=== PATIENT | male | born 1935 | race American Indian/Alaskan Native ===

== ENCOUNTER 2016-09-14 09:54 | Emergency (ER) | payer MEDICARE ==
[2016-09-14] MEDS ORDERED: MOTRIN PO ONE (14:06)
[2016-09-14] MEDS ORDERED: THERMAZENE 50 GRAM TP ONE (14:06)
[2016-09-14] MEDS ORDERED: BOOSTRIX IM ONE (14:06)
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
[2016-09-14 18:02] VITALS: BP 162/84
== END 2016-09-14 17:30 | disposition home or self-care (01) ==
LOC: ED 09:54
DX: T22.10XA Burn of first degree of shoulder and upper limb, except wrist and hand, unspecified site, initial encounter (principal); T22.212A Burn of second degree of left forearm, initial encounter; I10 Essential (primary) hypertension; J44.9 Chronic obstructive pulmonary disease, unspecified; Z95.1 Presence of aortocoronary bypass graft; Z87.891 Personal history of nicotine dependence; Z88.0 Allergy status to penicillin; X11.8XXA Contact with other hot tap-water, initial encounter; Y93.89 Activity, other specified; Y92.89 Other specified places as the place of occurrence of the external cause; Y99.8 Other external cause status
CPT/HCPCS: 90471; 90715; 99282